=== PATIENT | male | born 1960 | race Caucasian/White ===

== ENCOUNTER → 2016-09-09 | Day surgery (SDC) | payer BC ==
[~2016-09-09] MED LIST: NO MEDICATIONS
--- NOTE | ~2016-09-09 | OR ---
Unit #: [id number] #: [id number] Patient: SHANE HERMAN [id number] [address] [place], [place] [address] [id number] O MR#: [id number] NAME: SHANE HERMAN ROOM: Date of Procedure: 09/09/2016 Admission Date: 09/09/2016 Surgeon: Roberto Carlos Chamberlain M.D. : 1960 Attending Physician: Roberto Carlos Chamberlain M.D. Primary Care Physician: Jad Sorensen Jr., M.D. OPERATIVE REPORT PRIMARY CARE PHYSICIAN Jad Sorensen M.D. PREOPERATIVE DIAGNOSES Colorectal cancer surveillance in a high-risk patient. The patient has personal history of colonic adenomas removed in the past. PROCEDURE PERFORMED Colonoscopy up to cecum and terminal ileum with excellent preparation and good visualization. POSTOPERATIVE DIAGNOSES Completely normal examination up to cecum and terminal ileum. The quality of the prep was excellent. No polyps, diverticula, or hemorrhoids were seen. RECOMMENDATIONS Repeat colonoscopy in 5 years. SEDATION USED MAC. DESCRIPTION OF PROCEDURE Following detailed explanation of the potential risks and complications of a colonoscopy, namely perforation, bleeding, and complications related to sedation, the patient was brought to GI lab and laid in the left lateral decubitus position. A digital rectal examination was performed, which was normal. Lubricated tip of the Olympus video colonoscope was inserted through the anus and advanced under direct vision. The scope was advanced past the rectosigmoid into descending colon. No diverticula were noticed in this area. The scope tip was then navigated all the way up to cecum with visualization of the ileocecal valve and the appendiceal orifice. Preparation was excellent with good visualization and photodocumentation was obtained. Last several inches of terminal ileum were also visualized after intubation of the ileocecal valve and appeared normal. Successive segments of the colonic mucosa were examined upon withdrawal and appeared unremarkable. There being no polyps, mass lesions, AVMs, or diverticula. The patient did not have any hemorrhoids at anal verge. The scope was then withdrawn and the patient returned to the recovery area. He tolerated the procedure without any postprocedure complications. Unit #: [id number] #: [id number] Patient: SHANE HERMAN Dictated by... Priyanka Rosen/archana TD: 09/09/2016 13:17 JOB #: [id number] OPERATIVE REPORT Page 1 of 1 X Roberto Carlos Chamberlain MD PROCEDURE OPERATIVE NOTE
== END | disposition home or self-care (01) ==
LOC: COPS 06:43
DX: Z12.11 Encounter for screening for malignant neoplasm of colon (principal); Z86.010 Personal history of colon polyps; Z98.890 Other specified postprocedural states
CPT/HCPCS: J2250